=== PATIENT | female | born 1975 | race African-American/Black ===

== ENCOUNTER 2022-03-25 10:28 | Observation (INO) | payer OTHER ==
[2022-03-25 10:47] VITALS: BMI 23.8
[2022-03-25 12:19] LABS: LYMPH % 27.7 % (8-40); MEAN CELL VOLUME 58.2 fl (80-96); MEAN PLT VOLUME 8.1 fl (7.5-11.1); MONO % 7.5 % (3.8-10.2); NEUT % 63.8 % (42.8-82.8); PLATELET COUNT 602 10^3/uL (134-434); RBC 3.61 M/mm3 (3.60-5.2); RDW 24.5 % (11.6-15.6)
[2022-03-25 12:26] LABS: INR 1.21 (0.83-1.09); PROTHROMBIN TIME (PATIENT) 13.9 SEC (9.7-13.0)
[2022-03-25 12:29] LABS: ACTIVATED PTT 29.9 SECONDS (25.2-36.5)
[2022-03-25 12:40] LABS: ALBUMIN 3.8 g/dl (3.4-5.0); CALCIUM 9.6 mg/dL (8.5-10.1)
[2022-03-25 12:41] LABS: BLOOD UREA NITROGEN 10.9 mg/dL (7-18)
[2022-03-25 12:42] LABS: MCH 15.7 pg (25.7-33.7)
[2022-03-25 12:43] LABS: HEMOGLOBIN 5.7 GM/dL (10.7-15.3)
[2022-03-25 12:45] LABS: BILIRUBIN,TOTAL 0.2 mg/dL (0.2-1); TOT PROT 7.6 g/dl (6.4-8.2)
[2022-03-25 13:24] LABS: ANISOCYTOSIS 3+; MACROCYTOSIS 0; TEAR DROP CELLS 1+
[2022-03-25 22:43] VITALS: RESP 18
[2022-03-25] MEDS ORDERED: metoPROLOL SUCCINATE 25 MG TAB.SR.24H (FP) PO ONE (23:51)
[2022-03-26 01:10] VITALS: TEMP 98.9
[2022-03-26 08:32] LABS: BASO % 1.1 % (0-2.0); EOS % 0.5 % (0-4.5); HEMOGLOBIN 8.8 GM/dL (10.7-15.3); LYMPH % 27.1 % (8-40); MCH 20.3 pg (25.7-33.7); MCHC 31.2 g/dl (32.0-36.0); MEAN PLT VOLUME 8.2 fl (7.5-11.1); MONO % 8.6 % (3.8-10.2); NEUT % 62.7 % (42.8-82.8); PLATELET COUNT 456 10^3/uL (134-434); RBC 4.32 M/mm3 (3.60-5.2); RDW 30.3 % (11.6-15.6)
[2022-03-26 09:51] VITALS: BP 165/100; PULSE 76
[2022-03-26] MEDS ORDERED: metoPROLOL SUCCINATE 25 MG TAB.SR.24H (FP) PO SCH (10:00)
[2022-03-26] MEDS ORDERED: ESCITALOPRAM OXALATE 20 MG TABLET PO SCH (10:00)
== END 2022-03-26 09:54 | disposition home or self-care (01) ==
LOC: JER 10:28 → JERBED 13:40
PROVIDERS: ADMIT Family Medicine; ATTEND Family Medicine
PROC: 30233N1 Transfusion of Nonautologous Red Blood Cells into Peripheral Vein, Percutaneous Approach (ICD-10-PCS; principal; 2022-03-25)
DX: D50.0 Iron deficiency anemia secondary to blood loss (chronic) (principal); I10 Essential (primary) hypertension; R11.0 Nausea; N93.9 Abnormal uterine and vaginal bleeding, unspecified
CPT/HCPCS: 36430; S9538; 36415; 80053; 83880; 85025; 85610; 85730; 86850; 86900; 86901; 86922; 93005; 93010; 99285-25; C9803-CS; G0378; P9058; U0003; U0005